=== PATIENT | female | born 1995 | race Caucasian/White ===

== ENCOUNTER 2019-03-12 11:50 | Emergency (ER) | payer OTHER ==
[~2019-03-12] VITALS: Ht 154.9 cm; Wt 68.0 kg
== END 2019-03-12 14:35 | disposition home or self-care (01) ==
LOC: ER 11:50
DX: L03.116 Cellulitis of left lower limb (principal)

== ENCOUNTER 2019-12-28 14:52 | Outpatient (CLI) | payer OTHER | END 2019-12-28 15:00 | disposition home or self-care (01) | LOC: SONOGRAMA 14:52 | PROVIDERS: ATTEND Obstetrics & Gynecology | DX: N60.11 Diffuse cystic mastopathy of right breast (principal) ==

== ENCOUNTER 2020-03-01 13:30 | Inpatient (IN) | payer OTHER ==
[~2020-03-01] VITALS: Ht 154.9 cm; Wt 90.7 kg
[2020-03-27] MEDS ORDERED: PRENATAL + DHA1 EAC1 PO (16:20)
[2020-03-27] MEDS ORDERED: SYNTHROID88 MCG PO (16:20)
[2020-03-30] MEDS ORDERED: SYNTHROID75 MCG (08:48)
[2020-03-30] MEDS ORDERED: SYNTHROID50 MCG (08:48)
== END 2020-03-31 14:10 | disposition home or self-care (01) | DRG 788 ==
LOC: OB/GYN 03-24 13:30 → LDR 03-27 14:59 → OB/GYN 03-28 20:52 → SURG-SUITE 03-29 13:32
PROVIDERS: ADMIT Obstetrics & Gynecology; ATTEND Obstetrics & Gynecology
PROC: 3E0P7VZ Introduction of Hormone into Female Reproductive, Via Natural or Artificial Opening (ICD-10-PCS; 2020-03-27)
PROC: 4A1HXFZ Monitoring of Products of Conception, Cardiac Rhythm, External Approach (ICD-10-PCS; 2020-03-27)
PROC: 3E033VJ Introduction of Other Hormone into Peripheral Vein, Percutaneous Approach (ICD-10-PCS; 2020-03-28)
PROC: 10D00Z1 Extraction of Products of Conception, Low, Open Approach (ICD-10-PCS; principal; 2020-03-28 19:00)
DX: O65.8 Obstructed labor due to other maternal pelvic abnormalities (principal); Z3A.40 40 weeks gestation of pregnancy; Z37.0 Single live birth

== ENCOUNTER 2020-03-20 07:22 | Outpatient (CLI) | payer OTHER | END 2020-03-20 08:26 | disposition home or self-care (01) | LOC: NST 07:22 | PROVIDERS: ATTEND Obstetrics & Gynecology | DX: Z34.83 Encounter for supervision of other normal pregnancy, third trimester (principal) ==

== ENCOUNTER 2020-03-23 08:23 | Outpatient (CLI) | payer OTHER | END 2020-03-23 09:24 | disposition home or self-care (01) | LOC: NST 08:23 | PROVIDERS: ATTEND Obstetrics & Gynecology Maternal & Fetal Medicine | DX: Z34.83 Encounter for supervision of other normal pregnancy, third trimester (principal) ==

== ENCOUNTER 2020-03-26 10:10 | Outpatient (CLI) | payer OTHER ==
[2020-03-27] MEDS ORDERED: PRENATAL + DHA1 EAC1 PO (16:20)
[2020-03-27] MEDS ORDERED: SYNTHROID88 MCG PO (16:20)
== END 2020-03-26 10:59 | disposition home or self-care (01) ==
LOC: NST 10:10
PROVIDERS: ATTEND Obstetrics & Gynecology
DX: Z34.83 Encounter for supervision of other normal pregnancy, third trimester (principal)

== ENCOUNTER 2020-09-15 17:07 | Emergency (ER) | payer OTHER ==
[~2020-09-15] VITALS: Ht 154.9 cm; Wt 81.6 kg
[~2020-09-15 17:07] MED LIST: PRENATAL + DHA1 EAC1 PO; SYNTHROID50 MCG; SYNTHROID75 MCG; SYNTHROID88 MCG PO
[2020-09-15] MEDS ORDERED: SYNTHROID (17:28)
== END 2020-09-15 22:54 | disposition home or self-care (01) ==
LOC: ER 17:07
DX: E06.9 Thyroiditis, unspecified (principal)

== ENCOUNTER 2021-12-06 10:02 | Inpatient (IN) | payer OTHER ==
[~2021-12-06] VITALS: Ht 154.9 cm; Wt 3.2 kg
[~2021-12-06 10:02] MED LIST changes: +SYNTHROID PO
[2021-12-11] MEDS ORDERED: IRON325 MG PO (06:16)
[2021-12-11] MEDS ORDERED: PRENATAL 19 CH1 EACH PO (06:17)
== END 2021-12-13 11:19 | disposition home or self-care (01) | DRG 788 ==
LOC: OB/GYN 12-11 05:40 → O/R 12-11 05:40 → OB/GYN 12-11 08:30
PROVIDERS: ADMIT Obstetrics & Gynecology; ATTEND Obstetrics & Gynecology
PROC: 4A1HXCZ Monitoring of Products of Conception, Cardiac Rate, External Approach (ICD-10-PCS; 2021-12-11)
PROC: 10D00Z1 Extraction of Products of Conception, Low, Open Approach (ICD-10-PCS; principal; 2021-12-11 08:30)
DX: O34.211 Maternal care for low transverse scar from previous cesarean delivery (principal); Z3A.39 39 weeks gestation of pregnancy; Z37.0 Single live birth; Z20.822 Contact with and (suspected) exposure to COVID-19